=== PATIENT | female | born 1960 | race African-American/Black ===

== ENCOUNTER 2021-12-15 10:46 | Emergency (ER) | payer MEDICARE, OTHER ==
[2021-12-15] MEDS ORDERED: Fentanyl 100 MCG/2 ML VIAL ONE (11:52)
[2021-12-15 12:47] LABS: #Lymphocytes 1.6 thou/uL (1.20-3.40); #Monocytes 0.4 thou/uL (0.11-0.59); %Basophils 0.5 % (0.0-1.0); %Eosinophils 0.3 % (0.0-10.0); %Lymphocytes 22.3 % (21.0-51.0); %Monocytes 6.1 % (0.0-10.0); %Neutrophils 70.8 % (42.0-75.0); Hemoglobin 14.8 g/dL (12.0-16.0); Mean Corpuscular HGB CONC 31.5 g/dL (32.0-36.0); Mean Corpuscular Volume 85.9 fL (78.0-98.0); Mean Platelet Volume 8.8 fL (7.4-10.4); Platelet Count 265 thou/uL (130-400); RBC Distribution Width 13.5 % (11.5-14.5); Red Blood Cell (RBC) Count 5.49 mill/uL (4.20-5.40); White Blood Cell (WBC) Count 7.1 thou/uL (4.8-10.8)
[2021-12-15 13:01] LABS: ALT (SGPT) 10 U/L (8-55); AST (SGOT) 12 U/L (5-34); Albumin 4.7 g/dL (3.4-4.8); Alkaline Phosphatase 76 U/L (40-110); Anion Gap 17 mmol/L (10-20); BUN (Urea Nitrogen) 14 mg/dL (9.8-20.1); Bilirubin, Total 0.8 mg/dL (0.2-1.2); Calc. Creatinine Clearance 0 mL/min (70-130); Calcium 10.8 mg/dL (7.8-10.44); Carbon Dioxide 24 mmol/L (23-31); Chloride 99 mmol/L (98-107); Estimated GFR 51; Globulin 4.6 g/dL (2.4-3.5); Glucose 114 mg/dL (80-115); Potassium 3.2 mmol/L (3.5-5.1); Protein, Total 9.3 g/dL (5.8-8.1); Sodium 137 mmol/L (136-145)
[2021-12-15 13:54] LABS: Bacteria/HPF 3+ HPF (None Seen); Bilirubin 1+ (Negative); Blood, Urine Negative (Negative); Clarity Turbid (Clear); Glucose, Urine (Dipstick) 30 mg/dL (Negative); Ketone, Urine Trace mg/dL (Negative); Leukocyte 250 Leu/uL (Negative); Nitrite Negative (Negative); Protein, Urine (Dipstick) 100 mg/dL (Neg-Trace); RBC/HPF 0-3 HPF (0-3); Specific Gravity, Urine 1.034 (1.002-1.036); Squamous Epithelial 0-3 HPF (0-3)
[2021-12-15] MEDS ORDERED: Ketorolac Tromethamine 30 MG/ML VIAL ONE (15:11)
== END 2021-12-15 20:29 | disposition home or self-care (01) ==
LOC: ERS 10:46
DX: S32.010A Wedge compression fracture of first lumbar vertebra, initial encounter for closed fracture (principal); N39.0 Urinary tract infection, site not specified; E27.8 Other specified disorders of adrenal gland; W18.09XA Striking against other object with subsequent fall, initial encounter
CPT/HCPCS: 36415; 70450; 71045; 71260; 72170; 74177; 80053; 81003; 81015; 85025; 87086; 96374; 96375; J1885; J3010

== ENCOUNTER 2022-01-01 08:07 | Outpatient (CLI) | payer MEDICARE, OTHER | END 2022-01-01 08:08 | disposition home or self-care (01) | LOC: CT 08:07 | PROVIDERS: ATTEND Student in an Organized Health Care Education/Training Program | DX: E27.8 Other specified disorders of adrenal gland (principal); D35.02 Benign neoplasm of left adrenal gland; M48.56XA Collapsed vertebra, not elsewhere classified, lumbar region, initial encounter for fracture; M48.8X6 Other specified spondylopathies, lumbar region | CPT/HCPCS: 74170 ==

== ENCOUNTER 2024-11-30 18:42 | Emergency (ER) | payer OTHER, MEDICAID ==
[2024-11-30] MEDS ORDERED: Ketorolac Tromethamine 30 MG (1 mL) VIAL ONE (19:22)
== END 2024-11-30 20:50 | disposition home or self-care (01) ==
LOC: ERS 18:42
DX: M25.512 Pain in left shoulder (principal); I10 Essential (primary) hypertension; F17.220 Nicotine dependence, chewing tobacco, uncomplicated; Z86.73 Personal history of transient ischemic attack (TIA), and cerebral infarction without residual deficits
CPT/HCPCS: 71045; 93005; 96372; J1885